=== PATIENT | female | born 1995 | race African-American/Black ===

== ENCOUNTER 2017-05-05 08:15 | Emergency (ER) | payer BC ==
[~2017-05-05] VITALS: Ht 167.6 cm; Wt 65.8 kg
[2017-05-05] MEDS ORDERED: PRED50TA PO (08:44)
[2017-05-05] MEDS ORDERED: IBUP-1060 PO (08:44)
[2017-05-05] MEDS ORDERED: ACET-704 PO (08:44)
[2017-05-05] MEDS ORDERED: PENICILLIN G BENZATHINE LA 1,200,000 UNIT/2 ML DISP.SYRIN. IM ONE (08:45)
[2017-05-05] MEDS ORDERED: DEXAMETHASONE SOD PHOS 20 MG/5 ML VIAL. PO ONE (08:45)
[2017-05-05] MEDS ORDERED: ACETAMINOPHEN 650 MG/20.3 ML SOLUTION. PO ONE (08:45)
--- NOTE | 2017-05-05 08:46 | PHYS DOC ---
Past Medical History Past Medical History: Bronchitis Past Surgical History: No Surgical History Alcohol Use: None Drug Use: None Adult General Chief Complaint Chief Complaint: SORE THROAT HPI HPI Patient is a 22 year old female who presents with a sore throat headache and fever for 2 days. Review of Systems Review of Systems Constitutional: fever Eyes: Denies change in visual acuity, redness, or eye pain [] HENT: sore throat [] Respiratory: Denies cough or shortness of breath [] Cardiovascular: No additional information not addressed in HPI [] GI: Denies abdominal pain, nausea, vomiting, bloody stools or diarrhea [] : Denies dysuria or hematuria [] Musculoskeletal: Denies back pain or joint pain [] Integument: Denies rash or skin lesions [] Neurologic: headache, Endocrine: Denies polyuria or polydipsia [] Allergies Allergies Allergies Coded Allergies Type Severity Reaction Last Updated Verified No Known Drug Allergies 05/05/17 No Physical Exam Physical Exam Constitutional: Well developed, well nourished, no acute distress, non-toxic appearance. [] HENT: Normocephalic, atraumatic, bilateral external ears normal, oropharynx moist, no oral exudates, nose normal. [] +3 tonsils bilaterally with mild erythema and exudate bilaterally,midline uvula +2 anterior cervical adenopathy Eyes: PERRLA, EOMI, conjunctiva normal, no discharge. [] Neck: Normal range of motion, no tenderness, supple, no stridor. [] Cardiovascular:Heart rate regular rhythm, no murmur [] Lungs & Thorax: Bilateral breath sounds clear to auscultation [] Abdomen: Bowel sounds normal, soft, no tenderness, no masses, no pulsatile masses. [] Skin: Warm, dry, no erythema, no rash. [] Back: No tenderness, no CVA tenderness. [] Extremities: No tenderness, no cyanosis, no clubbing, ROM intact, no edema. [] Neurologic: Alert and oriented X 3, normal motor function, normal sensory function, no focal deficits noted. [] Psychologic: Affect normal, judgement normal, mood normal. [] Current Patient Data Vital Signs Vital Signs Date Time Temp Pulse Resp B/P (MAP) Pulse Ox O2 Delivery O2 Flow Rate FiO2 05/05/17 08:30 99.5 109 20 99 Room Air 99.5 EKG EKG [] Radiology/Procedures Radiology/Procedures [] Course & Med Decision Making Course & Med Decision Making Pertinent Labs and Imaging studies reviewed. (See chart for details) Physical exam is consistent with tonsillitis. Patient has a temperature 99.5. Patient was given Bicillin shot in the ED. Discharged with Tylenol #3 and Motrin every 6 hours and given prescription for prednisone. Saltwater gargles recommended. Follow-up with primary care doctor in one week. Provided return precautions. Dragon Disclaimer Dragon Disclaimer This electronic medical record was generated, in whole or in part, using a voice recognition dictation system. Departure Departure Impression: Primary Impression: Acute tonsillitis Additional Impression: Fever Disposition: 01 HOME, SELF-CARE Condition: STABLE Referrals: SEAN EMERY MD (PCP) Follow-up with the primary care doctor in one week Patient Instructions: Fever, Tonsillitis, [id number] Additional Instructions: You were seen with tonsillitis you were given Bicillin injection in the ED. Take prednisone as prescribed. Take Tylenol #3 for pain do not take additional tylenol with tylenol #3 and Motrin every 6 hours. Follow-up with your primary care doctor in one week. Come back to the ED symptoms worsen. Scripts Acetaminophen With Codeine (TYLENOL WITH CODEINE #3 TABLET) 1 Each Tablet 1 TAB PO PRN Q6HRS Y for PAIN, #30 TAB Prov: NASIMA CAMPOS DRILLER OPERATOR 05/05/17 Ibuprofen (IBUPROFEN) 800 Mg Tablet 800 MG PO PRN Q6HRS Y for INFLAMMATION, #30 TAB Prov: NASIMA CAMPOS DRILLER OPERATOR 05/05/17 Prednisone (PREDNISONE) 50 Mg Tablet 1 TAB PO DAILY, #5 TAB Prov: NASIMA CAMPOS DRILLER OPERATOR 05/05/17 Problem Qualifiers Primary Impression: Acute tonsillitis Pharyngitis/tonsillitis etiology: unspecified etiology Qualified Codes: J03.90 - Acute tonsillitis, unspecified Additional Impression: Fever Fever type: unspecified Qualified Codes: R50.9 - Fever, unspecified NASIMA CAPMOS APRN May 05, 2017 08:46
[2017-05-05 09:17] VITALS: BP 109/60
== END 2017-05-05 09:20 | disposition home or self-care (01) ==
LOC: ER 08:15
DX: J03.90 Acute tonsillitis, unspecified (principal); R50.9 Fever, unspecified; R51 Headache
CPT/HCPCS: 96372; 99283; J0561; J1100; 90471